=== PATIENT | female | born 1990 | race Hispanic/Latino ===

== ENCOUNTER 2016-09-23 08:30 | Inpatient (IN) | payer MEDICAID ==
[2016-09-23] MEDS ORDERED: STADOL IV PRN (11:27)
[2016-09-23] MEDS ORDERED: BRETHINE SUB-Q PRN (11:27)
[2016-09-23] MEDS ORDERED: MINERAL OIL PO PRN (11:27)
[2016-09-23] MEDS ORDERED: SUBLIMAZE IV PRN (11:27)
[2016-09-23] MEDS ORDERED: XYLOCAINE 2% INFILTRATI ONE (11:27)
[2016-09-23] MEDS ORDERED: BRETHINE IVP PRN (11:27)
[2016-09-23] MEDS ORDERED: ZOFRAN IV PRN ×2 (11:27→19:32)
[2016-09-23] MEDS ORDERED: ePHEDrine SULFATE IV PRN ×2 (11:27→14:36)
[2016-09-23] MEDS ORDERED: PITOCin/NS 20 UNIT/1000ML DRIP 20 UNITS/1,000 ML BAG IV SCH (12:00)
[2016-09-23] MEDS ORDERED: PITOCin/NS 30 UNIT/500ML 30 UNITS/500 ML BAG IV SCH ×2 (12:00)
[2016-09-23] MEDS: LACTATED RINGERS 1,000 ML IV SCH ×2 (12:47→15:44)
[2016-09-23 12:50] LABS: Hemoglobin 11.5 gm/dl (10.1-14.3); Mean Corpuscular HGB Conc 32 % (30-34); Mean Corpuscular Hemoglobin 27 pg (28-32); Mean Corpuscular Volume 83 fl (79-97); Platelet Count 292 K/mm3 (140-440); Red Blood Count 4.32 M/mm3 (3.65-5.03); Red Cell Distribution Width 14.5 % (13.2-15.2); White Blood Count 17.3 K/mm3 (4.5-11.0)
[2016-09-23] MEDS ORDERED: NARCAN 2 MG/2 ML IV PRN (14:36)
--- NOTE | 2016-09-23 14:36 | Anesthesia Consultation ---
Anesthesia Consult and Med Hx Date of service: 09/23/16 - Airway Anesthetic Teeth Evaluation: Good ROM Head & Neck: Adequate Mental/Hyoid Distance: Adequate Mallampati Class: Class II Intubation Access Assessment: Probably Good - Pre-Operative Health Status ASA Pre-Surgery Classification: ASA2 Proposed Anesthetic Plan: Epidural, Spinal - Pulmonary Hx Asthma: No COPD: No Hx Pneumonia: No - Cardiovascular System Hx Hypertension: No - Central Nervous System Hx Seizures: No Hx Psychiatric Problems: No - Endocrine Hx Renal Disease: No Hx End Stage Renal Disease: No Hx Hypothyroidism: No Hx Hyperthyroidism: No - Hematic Hx Anemia: No Hx Sickle Cell Disease: No - Other Systems Hx Alcohol Use: No
[2016-09-23] MEDS ORDERED: fentaNYL-BUPIV 2 MCG/ML-0.125% 200 MCG/100 ML BAG EPIDURAL ONE (14:39)
[2016-09-23] MEDS ORDERED: fentaNYL-BUPIV 2 MCG/ML-0.125% 200 MCG/100 ML BAG EPIDURAL SCH (15:00)
--- NOTE | 2016-09-23 18:24 | History and Physical Report ---
History of Present Illness Date of examination: 09/23/16 Date of admission: 09/23/16 11:46 Chief complaint: I'm having contractions History of present illness: Patient is a 26 year old who presents at 40 weeks in labor. She has had an uncomplicated course. She entered care. All labs have been negative. Past History Past Medical History: no pertinent history Past Surgical History: no surgical history Family/Genetic History: none Social history: single - Obstetrical History Expected Date of Delivery: 09/23/16 Actual Gestation: 40 Week(s) 0 Day(s) : 1 Medications and Allergies Allergies Allergy/AdvReac Type Severity Reaction Status Date / Time No Known Allergies Allergy Verified 09/23/16 08:44 Active Meds: Active Medications Butorphanol Tartrate (Stadol) 2 mg IV Q2H PRN PRN Reason: Pain , Severe (7-10) Last Admin: 09/23/16 12:45 Dose: 2 mg Fentanyl (Sublimaze) 100 mcg IV Q2H PRN PRN Reason: Labor Pain Lactated Ringer's (Lactated Ringers) 1,000 mls @ 125 mls/hr IV DIRECT DAVY Last Admin: 09/23/16 15:44 Dose: 125 mls/hr Oxytocin/Sodium Chloride (Pitocin/Ns 20 Unit/1000ml Drip) 20 units in 1,000 mls @ 125 mls/hr IV DIRECT DAVY Oxytocin/Sodium Chloride (Pitocin/Ns 30 Unit/500ml) 30 units in 500 mls @ 1 mls /hr IV TITR DAVY; 1 MILLIUNITS/MIN PRN Reason: Protocol Oxytocin/Sodium Chloride (Pitocin/Ns 30 Unit/500ml) 30 units in 500 mls @ 4 mls /hr IV TITR DAVY PRN Reason: Protocol Last Titration: 09/23/16 15:00 Dose: 8 ml/hr, 8 mls/hr Fentanyl/Bupivacaine/Sodium Chlor (Fentanyl-Bupiv 2 Mcg/Ml-0.125%) 200 mcg in 100 mls @ 12 mls/hr EPIDURAL TITR DAVY PRN Reason: Protocol Last Admin: 09/23/16 15:00 Dose: 12 mls/hr Mineral Oil (Mineral Oil) 30 ml PO QHS PRN PRN Reason: Constipation Ondansetron HCl (Zofran) 4 mg IV Q8H PRN PRN Reason: Nausea And Vomiting Review of Systems All systems: negative Breasts: deferred - Vital Signs Vital signs: Vital Signs Pulse Pulse Ox 133 H 77 L 09/23/16 08:39 09/23/16 08:39 Temp Pulse Resp BP Pulse Ox 98 F 89 16 129/61 99 09/23/16 14:07 09/23/16 18:09 09/23/16 14:07 09/23/16 18:09 09/23/16 17:46 - Physical Exam Breasts: Positive: deferred Cardiovascular: Regular rate, Normal S1, Normal S2 Lungs: Positive: Clear to auscultation, Normal air movement Abdomen: Positive: normal appearance, soft, normal bowel sounds Genitourinary (Female): Positive: normal external genitalia, normal perenium Vagina: Positive: normal moisture Uterus: Positive: normal size Extremities: Positive: normal - Obstetrical FHR: auscultation normal Cervical Dilatation: 2 Cervical Effacement Percentage: 80 station: -1 Uterine Contraction Frequency (min): 2-3 Uterine Contraction Pattern: Regular Uterine Contraction Intensity: Moderate Results Result Diagrams: 09/23/16 11:30 Abnormal lab results 09/23/16 Range/Units 11:30 WBC 17.3 H (4.5-11.0) K/mm3 MCH 27 L (28-32) pg All other labs normal. Assessment and Plan Patient is a 26 year old who presents in early labor. Admit to L&D. Augment with pitocin. AROM when comfortable. Anticipate .
--- NOTE | 2016-09-23 18:37 | Procedure Note ---
OB Delivery Note - Delivery Date of Delivery: 09/23/16 Surgeon: ABEL RODNEY Estimated blood loss: 200cc - Vaginal Delivery presentation: vertex Delivery position: OA Intrapartum events: none Delivery augmentation: pitocin Delivery monitor: external FHT, external uterine Route of delivery: Delivery placenta: spontaneous Delivery cord: 3 umbilical vessels Episiotomy: none Delivery laceration: other (periurethral) Anesthesia: epidural Delivery comments: Viable female delivered over intact perineum without nuchal. Weight 7 pounds 5 ounces. apgars 8,9. Infant placed on maternal chest after . Cord clamped when done pulsing. Placenta delivered spontaneously and intact with 3vc. Small periurethral lacerations hemostatic so not repaired. Excellent hemostasis. EBL 200 cc. Patient tolerated procedure well. - Infant A at 1 minute: 8 at 5 minutes: 9 Infant Gender: Female
[2016-09-23] MEDS ORDERED: MILK OF MAGNESIA PO PRN (19:32)
[2016-09-23] MEDS ORDERED: TYLENOL PO PRN (19:32)
[2016-09-23] MEDS ORDERED: BENADRYL PO PRN (19:32)
[2016-09-23] MEDS ORDERED: LANSINOH TP PRN (19:32)
[2016-09-23] MEDS ORDERED: DULCOLAX PR PRN (19:32)
[2016-09-23] MEDS ORDERED: NORCO 5/325 PO PRN (19:32)
[2016-09-23] MEDS ORDERED: SODIUM CHLORIDE FLUSH SYRINGE 10 ML IV SCH (19:32)
[2016-09-23] MEDS ORDERED: TUCKS PAD TP PRN (19:32)
[2016-09-23] MEDS ORDERED: PHENERGAN PO PRN (19:32)
[2016-09-23] MEDS ORDERED: PHENERGAN PR PRN (19:32)
[2016-09-23] MEDS: MOTRIN PO SCH (22:08)
[2016-09-23 22:27] LABS: Urine Drugs of Abuse Note Disclamer
[2016-09-24] MEDS: COLACE PO SCH ×3 (01:34→21:58)
[2016-09-24] MEDS: MOTRIN PO SCH ×4 (05:49→23:44)
[2016-09-24 07:11] LABS: Hematocrit 31.7 % (30.3-42.9); Hemoglobin 10.4 gm/dl (10.1-14.3)
[2016-09-24] MEDS: PRENATAL VITAMIN PO SCH (08:20)
--- NOTE | 2016-09-24 10:25 | Progress Note ---
Subjective Date of service: 09/24/16 Interval history: 1st day after normal vaginal delivery Patient is in the bed, comfortable. Pain is mostly controlled with pain meds. Ambulated well. No residual neurological deficit. No anesthesia complications Objective - Constitutional Vitals: Vital Signs - 12hr 09/24/16 09/24/16 09/24/16 00:38 05:10 08:08 Temperature 98.1 F 98 F 98.0 F Pulse Rate 70 74 78 Respiratory 18 20 20 Rate Blood Pressure 108/60 106/67 110/76 - Labs CBC & Chem 7: 09/24/16 06:45 Labs: Abnormal lab results 09/23/16 Range/Units 11:30 WBC 17.3 H (4.5-11.0) K/mm3 MCH 27 L (28-32) pg
--- NOTE | 2016-09-24 14:29 | Progress Note ---
Subjective - Subjective Date of service: 09/24/16 Interval history: Patient is a 26 year old who presents at 40 weeks in labor. She has had an uncomplicated course. She entered care. All labs have been negative. Patient reports: appetite normal, voiding normally, pain well controlled, ambulating normally : doing well Objective - Vital Signs Latest vital signs: Vital Signs Temp Pulse Resp BP Pulse Ox 09/24/16 08:08 98.0 F 78 20 110/76 09/24/16 05:10 98 F 74 20 106/67 09/24/16 00:38 98.1 F 70 18 108/60 09/23/16 19:50 98.2 F 77 18 116/65 09/23/16 18:39 80 110/57 09/23/16 18:24 81 119/57 09/23/16 18:18 18 09/23/16 18:09 89 129/61 09/23/16 17:54 90 118/62 09/23/16 17:47 103 H 118/67 09/23/16 17:46 134 H 99 09/23/16 17:41 101 H 99 09/23/16 17:37 105 H 100 09/23/16 17:36 80 100 09/23/16 17:31 95 H 100 09/23/16 17:30 87 100 09/23/16 17:26 75 100 09/23/16 17:24 81 100 09/23/16 17:21 108 H 99 09/23/16 17:17 86 106/66 100 09/23/16 17:16 79 99 09/23/16 17:11 75 100 09/23/16 17:06 72 100 09/23/16 17:04 94 H 100 09/23/16 17:01 80 100 09/23/16 16:58 75 100 09/23/16 16:56 88 99 09/23/16 16:53 94 H 100 09/23/16 16:51 80 99 09/23/16 16:47 87 113/70 09/23/16 16:46 82 99 09/23/16 16:41 72 97 09/23/16 16:36 78 98 09/23/16 16:31 80 97 09/23/16 16:26 78 96 17 16:21 80 96 09/23/16 16:17 83 111/73 09/23/16 16:16 70 97 09/23/16 16:11 84 98 09/23/16 16:06 81 97 09/23/16 16:01 83 97 09/23/16 15:56 85 99 09/23/16 15:51 76 99 09/23/16 15:47 75 108/65 09/23/16 15:46 75 98 09/23/16 15:42 79 98/58 09/23/16 15:41 71 98 09/23/16 15:36 68 98 09/23/16 15:31 72 98 09/23/16 15:26 76 98 09/23/16 15:21 78 98 09/23/16 15:17 90 107/61 09/23/16 15:16 79 99 09/23/16 15:11 76 98 09/23/16 15:06 78 99 09/23/16 15:01 82 99 09/23/16 14:56 84 99 09/23/16 14:51 78 98 09/23/16 14:47 75 101/61 09/23/16 14:46 74 98 09/23/16 14:44 75 103/61 09/23/16 14:41 69 99 09/23/16 14:40 71 103/63 09/23/16 14:36 72 99 09/23/16 14:34 67 112/69 09/23/16 14:31 77 98 09/23/16 14:30 76 105/63 100 Intake and Output 09/23/16 09/24/16 09/24/16 22:59 06:59 14:59 Intake Total 1360 240 Output Total 500 Balance 1360 -500 240 Intake: IV 1000 Lactated Ringers 1,000 ml 1000 @ 125 mls/hr IV DIRECT DAVY Rx#:[id number] Oral 240 Intake, Free Water 360 Output: Urine 500 Void 500 Other: Total, Intake Amount 240 Total, Output Amount 500 # Voids Void 1 1 Estimated Blood Loss 200 - Exam Breasts: Present: normal Cardiovascular: Present: Regular rate, Normal S1, Normal S2 Lungs: Present: Clear to auscultation, Normal air movement Abdomen: Present: normal appearance, soft, normal bowel sounds Uterus: Present: normal, firm Extremities: Present: normal Deep Tendon Reflex Grade: Normal +2
--- NOTE | 2016-09-24 14:31 | Discharge Summary ---
Providers - Providers Date of Admission: 09/23/16 11:46 Date of discharge: 09/25/16 Attending physician: AEBL RODNEY 09/23/16 19:32 Consult to Service Specialist [CONS] Routine Reason For Exam: assistance with , SNS 09/23/16 23:27 Consult to Case Management [CONS] Routine Services Needed at Discharge: Clerical Transcriber Notified:: yes Phone number called:: [phone] Was contact made?: Yes If yes, spoke with:: left a message Time called:: 23:29 Comment:: left message Additional Physician Instructions: Pt positive for marijuana during and now Primary care physician: ABEL RODNEY Hospitalization Reason for admission: active labor Delivery: complications: none Discharge diagnosis: IUP at term delivered baby: female Condition at discharge: Good Disposition: DC-01 TO HOME OR SELFCARE Plan - Discharge Medications Prescriptions: Ibuprofen [Motrin 600 MG tab] 600 mg PO Q6HR #25 tablet - Provider Discharge Summary Activity: routine, no sex for 6 weeks, no heavy lifting 4 weeks Diet: routine Instructions: routine Additional instructions: [] Smoking cessation referral if applicable(refer to patient education folder for contact #) [] Refer to [facility]'s [facility] Booklet Call your doctor immediately for: * Fever > 100.5 * Heavy vaginal bleeding ( >1 pad per hour) * Severe persistent headache * Shortness of breath * Reddened, hot, painful area to leg or breast * Drainage or odor from incision. * Keep incision clean and dry at all times and follow doctor's instructions regarding bathing/showering - Follow up plan Follow up: ABEL RODNEY MD [Primary Care Provider] - 6 Weeks
[2016-09-25] MEDS: MOTRIN PO SCH (05:45)
[2016-09-25] MEDS: PRENATAL VITAMIN PO SCH (10:02)
[2016-09-25] MEDS: COLACE PO SCH (10:02)
[2016-09-25 13:47] VITALS: BP 101/60
== END 2016-09-25 11:50 | disposition home or self-care (01) | DRG 775 ==
LOC: TRG 08:30 → LD 11:46 → OB 19:45
PROVIDERS: ADMIT Obstetrics & Gynecology; ATTEND Obstetrics & Gynecology
PROC: 00HU33Z Insertion of Infusion Device into Spinal Canal, Percutaneous Approach (ICD-10-PCS; principal; 2016-09-23)
PROC: 3E0S3CZ (ICD-10-PCS; principal; 2016-09-23)
PROC: 10E0XZZ Delivery of Products of Conception, External Approach (ICD-10-PCS; principal; 2016-09-23)
DX: O99.324 Drug use complicating childbirth (principal); F12.90 Cannabis use, unspecified, uncomplicated; O71.82 Other specified trauma to perineum and vulva; Z3A.40 40 weeks gestation of pregnancy; Z37.0 Single live birth
CPT/HCPCS: 36415; 80307; 85014; 85018; 85027; 86592; 86850; 86900; 86901; 99211; G0463; J0595; J2590; J7120

== ENCOUNTER 2018-09-28 07:42 | Inpatient (IN) | payer MEDICAID ==
[2018-09-28] MEDS ORDERED: LACTATED RINGERS 1,000 ML IV ONE (08:09)
[2018-09-28] MEDS ORDERED: LACTATED RINGERS 1,000 ML ONE (08:09)
[2018-09-28 08:37] LABS: Hematocrit 31.6 % (30.3-42.9); Hemoglobin 10.2 gm/dl (10.1-14.3); Mean Corpuscular HGB Conc 32 % (30-34); Mean Corpuscular Volume 78 fl (79-97); Platelet Count 271 K/mm3 (140-440); Red Blood Count 4.06 M/mm3 (3.65-5.03); Red Cell Distribution Width 14.1 % (13.2-15.2)
[2018-09-28] MEDS ORDERED: SUBLIMAZE IV PRN (08:52)
[2018-09-28] MEDS ORDERED: BRETHINE IVP PRN (08:52)
[2018-09-28] MEDS ORDERED: BRETHINE SUB-Q PRN (08:52)
[2018-09-28] MEDS ORDERED: AMPICILLIN/NS 2 GM/100 ML 2 GM/100 ML BAG IV ONE ×2 (09:00)
[2018-09-28] MEDS ORDERED: PITOCin/NS 30 UNIT/500ML 30 UNITS/500 ML BAG IV SCH (09:00)
[2018-09-28] MEDS ORDERED: LACTATED RINGERS 1,000 ML IV SCH (09:00)
[2018-09-28] MEDS ORDERED: XYLOCAINE 2% INFILTRATI ONE (09:30)
[2018-09-28] MEDS ORDERED: NARCAN 2 MG/2 ML IV PRN (10:28)
--- NOTE | 2018-09-28 10:31 | Anesthesia Consultation ---
Anesthesia Consult and Med Hx Date of service: 09/28/18 - Airway Anesthetic Teeth Evaluation: Chipped ROM Head & Neck: Adequate Mental/Hyoid Distance: Adequate Mallampati Class: Class I Intubation Access Assessment: Probably Good - Pulmonary Exam CTA: Yes - Cardiac Exam Cardiac Exam: RRR - Pre-Operative Health Status ASA Pre-Surgery Classification: ASA2 Proposed Anesthetic Plan: Epidural - Pulmonary Hx Smoking: Yes (stop 09/2017) Hx Asthma: No Hx Respiratory Symptoms: No SOB: No COPD: No Home Oxygen Therapy: No Hx Pneumonia: No Hx Sleep Apnea: No - Cardiovascular System Hx Hypertension: No Hx Coronary Artery Disease: No Hx Heart Attack/AMI: No Hx Angina: No Hx Percutaneous Transluminal Coronary Angioplasty (PTCA): No Hx Cardia Arrhythmia: No Hx Pacemaker: No Hx Internal Defibrillator: No Hx Valvular Heart Disease: No Hx Heart Murmur: No Hx Peripheral Vascular Disease: No - Central Nervous System Hx Neuromuscular Disorder: No Hx Seizures: No CVA: No Hx Back Pain: No Hx Psychiatric Problems: No - Gastrointestinal Hx Ulcer: No Hx Gastroesophageal Reflux Disease: Yes - Endocrine Hx Renal Disease: No Hx End Stage Renal Disease: No Hx Cirrhosis: No Hx Liver Disease: No Hx Insulin Dependent Diabetes: No Hx Non-Insulin Dependent Diabetes: No Hx Thyroid Disease: No Hx Hypothyroidism: No Hx Hyperthyroidism: Yes (diagnosed age 17) - Hematic Hx Anemia: No Hx Sickle Cell Disease: No - Other Systems Hx Alcohol Use: No Hx Substance Use: No Hx Cancer: No Hx Obesity: No
[2018-09-28] MEDS ORDERED: fentaNYL-BUPIV 2 MCG/ML-0.125% 200 MCG/100 ML BAG EPIDURAL SCH (11:00)
[2018-09-28] MEDS ORDERED: AMPICILLIN/NS 1 GM/50 ML 1 GM/50 ML BAG IV SCH (13:30)
[2018-09-28] MEDS ORDERED: MINERAL OIL ONE (13:58)
[2018-09-28] MEDS: PITOCin/NS 20 UNIT/1000ML DRIP 20 UNITS/1,000 ML BAG IV SCH ×2 (14:42→15:53)
[2018-09-28] MEDS ORDERED: SODIUM CHLORIDE FLUSH SYRINGE 10 ML IV SCH (17:02)
[2018-09-28] MEDS ORDERED: DULCOLAX PR PRN (17:02)
[2018-09-28] MEDS ORDERED: ZOFRAN IV PRN (17:02)
[2018-09-28] MEDS ORDERED: MILK OF MAGNESIA PO PRN (17:02)
[2018-09-28] MEDS ORDERED: LANSINOH TP PRN (17:02)
[2018-09-28] MEDS ORDERED: BENADRYL PO PRN (17:02)
[2018-09-28] MEDS ORDERED: TUCKS PAD TP PRN (17:02)
[2018-09-28] MEDS ORDERED: TYLENOL PO PRN (17:02)
[2018-09-28] MEDS ORDERED: PHENERGAN PR PRN (17:02)
[2018-09-28] MEDS ORDERED: PHENERGAN PO PRN (17:02)
[2018-09-28] MEDS: NORCO 5/325 PO PRN (17:20)
[2018-09-28] MEDS: IBUPROFEN PO SCH (21:04)
[2018-09-28] MEDS: COLACE PO SCH (21:04)
[2018-09-28] MEDS ORDERED: MINERAL OIL PO PRN (22:00)
[2018-09-29 03:45] LABS: Hematocrit 29.3 % (30.3-42.9); Hemoglobin 9.4 gm/dl (10.1-14.3)
[2018-09-29] MEDS: NORCO 5/325 PO PRN ×3 (03:45→19:59)
[2018-09-29] MEDS: IBUPROFEN PO SCH ×4 (05:29→23:27)
[2018-09-29] MEDS ORDERED: BOOSTRIX IM ONE (06:00)
[2018-09-29] MEDS: PRENATAL VITAMIN PO SCH (09:01)
[2018-09-29] MEDS: COLACE PO SCH ×2 (09:01→21:25)
--- NOTE | 2018-09-29 14:03 | Procedure Note ---
OB Delivery Note - Delivery Date of Delivery: 09/28/18 Surgeon: ABEL RODNEY Estimated blood loss: 200cc - Vaginal Delivery presentation: vertex Delivery position: OA Intrapartum events: none Delivery augmentation: rupture of membranes Delivery monitor: external FHT, external uterine Route of delivery: Delivery placenta: spontaneous Delivery cord: 3 umbilical vessels Episiotomy: none Delivery laceration: none Anesthesia: epidural Delivery comments: Viable female delivered over intact perineum. Weight 7 pounds. apgars 9,9. Placenta delivered spontaneously and intact. No lacerations. Excellent hemostasis. Pt tolerated procedure well. - Infant A at 1 minute: 8 at 5 minutes: 9 Infant Gender: Female
--- NOTE | 2018-09-29 14:03 | History and Physical Report ---
History of Present Illness Date of examination: 09/28/18 Date of admission: 09/28/18 07:43 Chief complaint: I'm in labor History of present illness: Pt is a 28 year old who presents in labor at 41.2 weeks with contractions. She has had an uncomplicated course. She is GBs positive. Past History Past Medical History: no pertinent history Past Surgical History: no surgical history Social history: - Obstetrical History Expected Date of Delivery: 09/19/18 Actual Gestation: 41 Week(s) 3 Day(s) : 2 Number of Living Children: 1 Medications and Allergies Allergies Allergy/AdvReac Type Severity Reaction Status Date / Time No Known Allergies Allergy Verified 09/23/16 08:44 Home Medications Medication Instructions Recorded Confirmed Last Taken Type Ibuprofen [Motrin 600 MG tab] 600 mg PO Q6HR #25 tablet 09/24/16 09/28/18 Unknown Rx Plus Tablet 1 tab PO DAILY 09/28/18 09/28/18 09/24/18 09:00 History HYDROcodone/APAP 5-325 [[place] 1 each PO Q4HR PRN #15 tablet 09/29/18 Unknown Rx 5/325] Ibuprofen [Motrin] 800 mg PO Q8HR PRN #40 tablet 09/29/18 Unknown Rx Active Meds: Active Medications Acetaminophen (Tylenol) 650 mg PO Q4H PRN PRN Reason: Pain MILD(1-3)/Fever >100.5/[place] Acetaminophen/Hydrocodone Bitart ([place] 5/325) 2 each PO Q6H PRN PRN Reason: Pain, Moderate (4-6) Last Admin: 09/29/18 13:03 Dose: 2 each Documented by: Bisacodyl (Dulcolax) 10 mg LA BID PRN PRN Reason: Constipation Diphenhydramine HCl (Benadryl) 25 mg PO Q6H PRN PRN Reason: Itching Docusate Sodium (Colace) 100 mg PO BID [facility] Last Admin: 09/29/18 09:01 Dose: 100 mg Documented by: Ibuprofen (Ibuprofen) 600 mg PO Q6HR [facility] Last Admin: 09/29/18 05:29 Dose: 600 mg Documented by: Magnesium Hydroxide (Milk Of Magnesia) 30 ml PO HS PRN PRN Reason: Constipation Multi-Ingredient Ointment (Lansinoh) 1 applic TP PRN PRN PRN Reason: Sore Nipples Last Admin: 09/29/18 09:01 Dose: 1 applic Documented by: Multivitamins/Iron/Calcium ( Vitamin) 1 each PO QDAY [facility] Last Admin: 09/29/18 09:01 Dose: 1 each Documented by: Ondansetron HCl (Zofran) 4 mg IV Q8H PRN PRN Reason: Nausea And Vomiting Promethazine HCl (Phenergan) 25 mg LA Q6H PRN PRN Reason: Nausea And Vomiting Promethazine HCl (Phenergan) 25 mg PO Q6H PRN PRN Reason: Nausea And Vomiting Sodium Chloride (Sodium Chloride Flush Syringe 10 Ml) 10 ml IV PRN [facility] Witch Catarina/Glycerin (Tucks Pad) 1 each TP PRN PRN PRN Reason: Hemorrhoid/cleansing/soothing Review of Systems All systems: negative Genitourinary: leakage of fluid, contractions - Vital Signs Vital signs: Vital Signs Pulse BP Pulse Ox 87 104/63 97 09/28/18 07:56 09/28/18 07:56 09/28/18 07:56 Temp Pulse Resp BP Pulse Ox 98 F 64 18 97/59 98 09/29/18 07:50 09/29/18 07:50 09/29/18 07:50 09/29/18 07:50 09/29/18 04:51 - Physical Exam Breasts: Positive: deferred Cardiovascular: Regular rate, Normal S1, Normal S2 Lungs: Positive: Clear to auscultation, Normal air movement Abdomen: Positive: normal appearance, soft, normal bowel sounds Genitourinary (Female): Positive: normal external genitalia, normal perenium Vulva: both: normal Cervix: Positive: lesion Uterus: Positive: normal size, normal contour Results Result Diagrams: 09/29/18 03:16 Abnormal lab results 09/29/18 Range/Units 03:16 Hgb 9.4 L (10.1-14.3) gm/dl Hct 29.3 L (30.3-42.9) % All other labs normal. Assessment and Plan IUP at 41 weeks in active labor. Admit to L&D. Anticipate .
[2018-09-30] MEDS: NORCO 5/325 PO PRN ×2 (03:07→09:18)
[2018-09-30] MEDS: IBUPROFEN PO SCH (05:31)
[2018-09-30] MEDS: COLACE PO SCH (09:18)
[2018-09-30] MEDS: PRENATAL VITAMIN PO SCH (09:18)
[2018-09-30 10:07] VITALS: BP 109/63
--- NOTE | 2018-09-30 10:43 | Progress Note ---
Assessment and Plan PPD 2 s/p . Doing wll. Plan for discharge home on today. Subjective - Subjective Date of service: 09/29/18 Interval history: Pt is a 28 year old who presents in labor at 41.2 weeks with contractions. She has had an uncomplicated course. She is GBs positive. Patient reports: appetite normal, voiding normally, pain well controlled, flatus, ambulating normally [place]: doing well Objective - Vital Signs Latest vital signs: Vital Signs Temp Pulse Resp BP BP Pulse Ox 09/30/18 09:05 97.6 F 72 16 109/63 98 09/30/18 06:37 69 100 09/30/18 05:31 18 09/30/18 03:07 18 09/30/18 01:19 97.7 F 49 L 20 111/68 98 09/29/18 19:59 18 09/29/18 16:25 98.2 F 68 20 102/57 Intake and Output 09/29/18 09/30/18 09/30/18 22:59 06:59 14:59 Intake Total 600 360 Balance 600 360 Intake: Oral 600 Intake, Free Water 360 Other: Total, Intake Amount 360 # Voids Void 1 2 - Exam Cardiovascular: Present: Regular rate, Normal S1, Normal S2 Lungs: Present: Clear to auscultation, Normal air movement Abdomen: Present: normal appearance, soft, normal bowel sounds Uterus: Present: normal, firm, fundal height below umbilicus
--- NOTE | 2018-09-30 10:44 | Discharge Summary ---
Providers - Providers Date of Admission: 09/28/18 07:43 Date of discharge: 09/30/18 Attending physician: ABEL RODNEY Primary care physician: ABEL RODNEY Hospitalization Reason for admission: active labor Delivery: Episiotomy: none Laceration: none Discharge diagnosis: IUP at term delivered [place] baby: female Hospital course: UNREMARKABLE Condition at discharge: Good Disposition: DC-01 TO HOME OR SELFCARE Plan - Discharge Medications Prescriptions: Ibuprofen [Motrin] 800 mg PO Q8HR PRN #40 tablet PRN Reason: Pain, Moderate (4-6) HYDROcodone/APAP 5-325 [[place] 5/325] 1 each PO Q4HR PRN #15 tablet PRN Reason: Pain - Provider Discharge Summary Additional instructions: [] Smoking cessation referral if applicable(refer to patient education folder for contact #) [] Refer to [facility]'s [facility] Booklet Call your doctor immediately for: * Fever > 100.5 * Heavy vaginal bleeding ( >1 pad per hour) * Severe persistent headache * Shortness of breath * Reddened, hot, painful area to leg or breast * Drainage or odor from incision. * Keep incision clean and dry at all times and follow doctor's instructions regarding bathing/showering - Follow up plan Follow up: ABEL RODNEY MD [Primary Care Provider] - 7 Days
== END 2018-09-30 15:20 | disposition home or self-care (01) | DRG 775 ==
LOC: TRG 07:42 → LD 07:42 → TRG 07:43 → LD 07:43 → OB 17:40
PROVIDERS: ADMIT Obstetrics & Gynecology; ATTEND Obstetrics & Gynecology
PROC: 10E0XZZ Delivery of Products of Conception, External Approach (ICD-10-PCS; principal; 2018-09-28)
PROC: 3E0R3BZ Introduction of Anesthetic Agent into Spinal Canal, Percutaneous Approach (ICD-10-PCS; 2018-09-28)
PROC: 00HU33Z Insertion of Infusion Device into Spinal Canal, Percutaneous Approach (ICD-10-PCS; 2018-09-28)
PROC: 3E0234Z Introduction of Serum, Toxoid and Vaccine into Muscle, Percutaneous Approach (ICD-10-PCS; 2018-09-29)
DX: O99.824 Streptococcus B carrier state complicating childbirth (principal); O99.334 Smoking (tobacco) complicating childbirth; F17.200 Nicotine dependence, unspecified, uncomplicated; O99.62 Diseases of the digestive system complicating childbirth; K21.9 Gastro-esophageal reflux disease without esophagitis; O99.284 Endocrine, nutritional and metabolic diseases complicating childbirth; E05.90 Thyrotoxicosis, unspecified without thyrotoxic crisis or storm; Z37.0 Single live birth; Z3A.41 41 weeks gestation of pregnancy; Z23 Encounter for immunization; Z79.899 Other long term (current) drug therapy
CPT/HCPCS: 36415; 85014; 85018; 85027; 86592; 86850; 86900; 86901; 90471; 90715; G0378; A6250; J0290; J2590; J3010; J7120

== ENCOUNTER 2018-10-27 08:16 | Day surgery (SDC) | payer MEDICAID ==
[~2018-10-27 08:16] MED LIST: MARCAINE 0.25% INFILTRATI ONE; NACL 0.9% IR ONE
[2018-10-27] MEDS ORDERED: LACTATED RINGERS 1,000 ML IV SCH (09:00)
--- NOTE | 2018-10-27 09:01 | Anesthesia Day of Surgery ---
Anesthesia Day of Surgery - Day of Surgery Patient Examined: Yes Patient H&P Reviewed: Yes Patient is NPO: Yes
[2018-10-27] MEDS ORDERED: SUBLIMAZE IV PRN (09:04)
[2018-10-27] MEDS ORDERED: ZOFRAN IV PRN (09:04)
--- NOTE | 2018-10-27 09:04 | Anesthesia Consultation ---
Anesthesia Consult and Med Hx Date of service: 10/27/18 - Airway Anesthetic Teeth Evaluation: Chipped ROM Head & Neck: Adequate Mental/Hyoid Distance: Adequate Mallampati Class: Class II Intubation Access Assessment: Good - Pre-Operative Health Status ASA Pre-Surgery Classification: ASA2 Proposed Anesthetic Plan: General - Pulmonary Hx Smoking: Yes (Former) Hx Asthma: No Hx Respiratory Symptoms: No SOB: No COPD: No Hx Pneumonia: No Hx Sleep Apnea: No - Cardiovascular System Hx Hypertension: No Hx Coronary Artery Disease: No Hx Heart Attack/AMI: No Hx Angina: No Hx Percutaneous Transluminal Coronary Angioplasty (PTCA): No Hx Cardia Arrhythmia: No Hx Pacemaker: No Hx Internal Defibrillator: No Hx Valvular Heart Disease: No Hx Heart Murmur: No Hx Peripheral Vascular Disease: No - Central Nervous System Hx Neuromuscular Disorder: No Hx Seizures: No CVA: No Hx Back Pain: No Hx Psychiatric Problems: No - Gastrointestinal Hx Ulcer: No Hx Gastroesophageal Reflux Disease: Yes - Endocrine Hx Renal Disease: No Hx End Stage Renal Disease: No Hx Cirrhosis: No Hx Liver Disease: No Hx Insulin Dependent Diabetes: No Hx Non-Insulin Dependent Diabetes: No Hx Thyroid Disease: No Hx Hypothyroidism: No Hx Hyperthyroidism: Yes (No meds) - Hematic Hx Anemia: No Hx Sickle Cell Disease: No - Other Systems Hx Alcohol Use: No Hx Substance Use: No Hx Cancer: No Hx Obesity: No
--- NOTE | 2018-10-27 09:16 | Short Stay Summary ---
Short Stay Documentation Date of service: 10/27/18 Narrative H&P: Pt is a 28 year old who presents for elective sterilization approximately 4 weeks post . - History H&P: obtained from office Past Medical History: No medical history Past Surgical History: No surgical history Social history: - Allergies and Medications Current Medications: Allergies No Known Allergies Allergy (Verified 10/26/18 15:07) Home Medications Medication Instructions Recorded Confirmed Last Taken Type No Known Home Medications [No 10/26/18 10/26/18 Unknown History Reported Home Medications] Active Medications Fentanyl (Sublimaze) 50 mcg IV Q5MIN PRN PRN Reason: Pain , Severe (7-10) Stop: 10/27/18 20:00 Lactated Ringer's (Lactated Ringers) 1,000 mls @ 100 mls/hr IV DIRECT DAVY Midazolam HCl (Versed) 2 mg IV PREOP NR Stop: 10/27/18 23:59 Ondansetron HCl (Zofran) 4 mg IV ONCE PRN PRN Reason: Nausea And Vomiting - Physical exam General appearance: no acute distress Integumentary: no rash, no growths Lungs: Clear to auscultation, Normal air movement Breasts: deferred Heart: Regular rate, Normal S1, Normal S2 Gastrointestinal: normal, normoactive bowel sounds Female Genitourinary: normal Rectal Exam: deferred Extremities: No edema - Brief post op/procedure progress note Date of procedure: 10/27/18 Pre-op diagnosis: Undesired fertility Post-op diagnosis: same Procedure: Bilateral laparoscopic salpingectomy Anesthesia: GETA Findings: Normal uterus tubes and ovaries Surgeon: ABEL RODNEY Estimated blood loss: minimal Pathology: list (right and left tubes) Specimen disposition: to lab Condition: stable - Hospital course Hospital course: unremarkable - Disposition Condition at discharge: Good Disposition: DC-01 TO HOME OR SELFCARE Short Stay Discharge Plan Activity: advance as tolerated Weight Bearing Status: Weight Bear as Tolerated Diet: regular Follow up with: ABEL RODNEY MD [Staff Physician] - 14 Days Prescriptions: Ibuprofen [Motrin] 800 mg PO Q8HR PRN #30 tablet PRN Reason: Pain, Moderate (4-6) HYDROcodone/APAP 5-325 [[place] 5/325] 1 each PO Q4HR PRN #20 tablet PRN Reason: Pain
[2018-10-27] MEDS ORDERED: MARCAINE 0.25% INFILTRATI ONE ×2 (09:31→10:46)
[2018-10-27] MEDS ORDERED: METHYLENE BLUE ONE (09:31)
[2018-10-27] MEDS ORDERED: DIPRIVAN 10 MG/ML IV ONE (09:46)
[2018-10-27] MEDS ORDERED: DILAUDID ONE (09:46)
[2018-10-27] MEDS ORDERED: ZEMURON IV ONE (09:46)
[2018-10-27] MEDS ORDERED: XYLOCAINE MPF 2% ONE (09:46)
[2018-10-27] MEDS ORDERED: VERSED IV NR (10:00)
[2018-10-27] MEDS ORDERED: ANCEF/STERILE WATER 2 GM/20 ML 2 GM/20 ML SYRINGE IV NR (10:00)
[2018-10-27] MEDS ORDERED: ZOFRAN ONE (10:41)
[2018-10-27] MEDS ORDERED: TORADOL ONE (10:41)
[2018-10-27] MEDS ORDERED: ROBINUL ONE (10:41)
[2018-10-27] MEDS ORDERED: BLOXIVERZ ONE (10:41)
[2018-10-27] MEDS ORDERED: NACL 0.9% IR ONE (10:48)
--- NOTE | 2018-10-27 10:51 | Operative Report ---
Operative Report Operative Report: Preoperative diagnosis: Undesired fertility Postoperative diagnosis: Same Procedure: Bilateral laparoscopic salpingectomy Surgeon: Janette Cespedes Anesthesia: General EBL: Minimal IV fluids: 1000 mL Urine output: 20 mL Findings: Normal uterus tubes and ovaries Specimens: Portion of right and left fallopian tube Complications: None The patient was properly identified as herself. She was then taken to the OR with IV running and in place. She was given general anesthesia without difficulty. She was placed in a dorsal lithotomy position. She was then prepped and draped in normal sterile fashion. Attention was turned to the patient's vagina. Her bladder was drained of clear urine with a red rubber catheter. The speculum was then placed the patient's vagina. The cervix was visualized and grasped with tenaculum. The acorn cannula was then inserted. The surgeon's gloves were changed and attention turned to the patient's abdomen. A small incision was made in the patient's umbilicus incision a 5 mm trocar was placed. The laparoscope confirmed intra-abdominal placement. The abdomen was insufflated with CO2 gas to approximately 25 mmHg. Both fallopian tubes were identified. With direct visualization a second trocar was placed through an incision in the left lower quadrant. Both tubes were found and followed out to the fimbriated ends. Each tube was cauterized at the portion nearest the cornua, then cauterized across the broad ligament until the tube was completely detached. There was excellent hemostasis at the end of this portion of the procedure. Each tube was handed off for pathology. At this point the abdomen was deflated. All instruments were then removed from the abdomen. The incisions were then closed with 4-0 Monocryl. The incisions were also injected with quarter percent Marcaine. The patient tolerated the procedure well she was then awakened and taken recovery in stable condition. Sponge needle and instrument counts were correct 2.
[2018-10-27 11:39] VITALS: BP 109/56
--- NOTE | 2018-10-27 14:11 | Post Anesthesia Evaluation ---
- Post Anesthesia Evaluation Patient Participated: Yes Airway Patent: Yes Stable Respiratory Function: Yes Nausea/Vomiting: No Temp > 96.8F: Yes Pain Manageable: Yes Adequeate Hydration: Yes Anesthesia Complications: No Block Receding Appropriately: Not Applicable Patient on Ventilator: No
== END 2018-10-27 08:17 | disposition home or self-care (01) ==
LOC: OR 08:16
PROVIDERS: ATTEND Obstetrics & Gynecology
DX: Z30.2 Encounter for sterilization (principal); K21.9 Gastro-esophageal reflux disease without esophagitis; E05.90 Thyrotoxicosis, unspecified without thyrotoxic crisis or storm; Z79.899 Other long term (current) drug therapy; Z87.891 Personal history of nicotine dependence; Z98.890 Other specified postprocedural states; Z82.49 Family history of ischemic heart disease and other diseases of the circulatory system
CPT/HCPCS: 58670; 81025; 88302; J0690; J1170; J1885; J2250; J2405; J2704; J2710; J3010; J7120; Q9968